=== PATIENT | female | born 1940 | race Caucasian/White ===

== ENCOUNTER 2018-01-30 09:37 | Inpatient (IN) ==
[2018-01-30] MEDS ORDERED: LORazepam 2 MG/1 ML VIAL ONE (09:46)
[2018-01-30] MEDS ORDERED: ATROPINE 1 MG/10 ML SYRINGE ONE (10:13)
[2018-01-30] MEDS ORDERED: PROPOFOL 1,000 MG/100 ML BOTTLE IV ONE (10:18)
[2018-01-30] MEDS ORDERED: LORazepam 2 MG/1 ML VIAL IV STA ×2 (10:18→10:28)
[2018-01-30] MEDS ORDERED: SODIUM CHLORIDE 0.9% 1,000 ML IV STA (10:18)
[2018-01-30] MEDS: PROPOFOL 1,000 MG/100 ML BOTTLE IV SCH ×3 (10:24→23:09)
[2018-01-30] MEDS ORDERED: DOPamine 800 MG/250 ML PREMIX IV ONE (10:24)
[2018-01-30 10:27] LABS: Basophils % 0.1 % (0.0-0.8); Eosinophils % 0.1 % (0.00-10.9); Hematocrit 35.2 VOL% (35.7-47.0); Hemoglobin 11.4 GM/DL (12.0-16.0); Immature Granulocytes % 0.9 %; Immature Granulocytes Absolute 0.13 #; Lymphocytes # 3.8 10*3/uL (1.4-4.0); Lymphocytes % 27.2 % (21.3-54.2); Mean Corpuscular HGB Conc 32.4 GM/DL (32-36); Mean Corpuscular Hemoglobin 29 PG (27-34); Mean Corpuscular Volume 88.9 FL (87-102); Mean Platelet Volume 11.8 FL (9.6-12.0); Monocytes # 0.9 10*3/uL (0.11-0.8); Monocytes % 6.5 % (1.7-12.7); Neutrophils % 65.2 % (38.7-73.9); Platelet Count 388 T/CUMM (130-400); Red Blood Count 3.96 MC/CUMM (3.8-5.5); Red Cell Distribution Width 13.3 % (9.3-17.3); White Blood Count 13.8 T/CUMM (4-12)
[2018-01-30] MEDS: DOPamine 800 MG/250 ML PREMIX IV PRN (10:27)
[2018-01-30 10:38] LABS: Barbiturates Screen,Urine Negative (Negative); Benzodiazepines Screen,Urine Negative (Negative); Cannabinoid Screen,Urine Negative (Negative); Opiate Screen,Urine Negative (Negative); Phencyclidine Screen,Urine Negative (Negative)
[2018-01-30 10:46] LABS: Albumin 3.3 G/DL (3.4-5.0); Bilirubin,Total 0.7 MG/DL (0.2-1.0); Calcium 8.5 MG/DL (8.5-10.1); Osmolality,Calculated 289.8 MOS/KG (273-304); Potassium 4.4 MMOL/L (3.5-5.1); Thyroid Stimulating Hormone 10.2 uIU/ml (0.358-3.74); Total Protein 7.4 G/DL (6.4-8.3)
[2018-01-30 10:49] LABS: Troponin I Only 5.9 NG/ML (0.00-0.045)
[2018-01-30 11:15] LABS: Amorphous Crystals,Urine Occasional /HPF (Few); Apearance,Urine CLOUDY (Clear); Bacteria,Urine Few /HPF (Few); Bilirubin,Urine Negative (Negative); Blood, Urine Small mg/dL (Negative); Glucose,Urine (UA) Negative (Negative); Hyaline Casts,Urine 16 /LPF (0-3); Ketones,Urine Negative (Negative); Nitrite,Urine Negative (Negative); Protein,Urine 100 MG/DL; RBC,Urine 4 /HPF (0-4); Squamous Epithelial Cell,Urine Occasional /HPF (0-10); Urine Color Amber (Yellow); Urine Specific Gravity 1.014 (1.001-1.035); Urine Urobilinogen < 2.0 EU/DL (0.2-1.0); WBC,Urine 16 /HPF (0-6)
[2018-01-30] MEDS ORDERED: ALBUTEROL 2.5 MG/3 ML NEB RESP TX PRN (11:47)
[2018-01-30] MEDS ORDERED: ONDANSETRON 4 MG/2 ML VIAL IV PRN (11:47)
[2018-01-30] MEDS ORDERED: GLUCAGON 1 MG VIAL IM PRN (11:59)
[2018-01-30] MEDS ORDERED: DEXTROSE 50% 25 GM/50 ML VIAL IV PRN (11:59)
[2018-01-30] MEDS: SODIUM CHLORIDE 0.9% 1,000 ML IV SCH ×2 (12:29→23:09)
[2018-01-30] MEDS: PANTOPRAZOLE 40 MG VIAL IV SCH (12:32)
[2018-01-30] MEDS: ALBUTEROL/IPRATROPIUM 3 ML NEB RESP TX SCH ×3 (15:22→19:33)
[2018-01-30 15:28] LABS: ABG Base Excess -9.5 MMOL/L (-2.5-2.5); ABG HCO3 16.9 MMOL/L (20-26); ABG Oxygen Saturation 97.2 % (95-100); ABG PCO2 33.5 MM HG (35-48); ABG PH 7.294 (7.35-7.45); ABG TCO2 14.7 MMOL/L (23-27); Allen Test Positive; Pt O2 Delivery Device Ventilator
[2018-01-30] MEDS: MEROPENEM 1,000 MG in SYRINGE 1 EACH IV SCH (15:59)
[2018-01-30] MEDS: ENOXAPARIN 30 MG/0.3 ML SYRINGE SUBCUT SCH (16:00)
[2018-01-30] MEDS: ASPIRIN CHEW 81 MG TABLET PO SCH (16:00)
[2018-01-30] MEDS ORDERED: INSULIN LISPRO 100 UNIT/ML SUBCUT SCH (16:30)
[2018-01-30 17:32] LABS: ABG Base Excess -9.7 MMOL/L (-2.5-2.5); ABG HCO3 16.7 MMOL/L (20-26); ABG Oxygen Saturation 97.3 % (95-100); ABG PCO2 34.4 MM HG (35-48); ABG PH 7.282 (7.35-7.45); ABG TCO2 14.7 MMOL/L (23-27); Allen Test Positive; Pt O2 Delivery Device Ventilator
[2018-01-30] MEDS: INSULIN LISPRO 100 UNIT/ML SUBCUT SCH (19:04)
[2018-01-30] MEDS: methylPREDNISolone SOD SUC 40 MG/1 ML VIAL IV SCH (20:08)
[2018-01-30] MEDS: CLINDAMYCIN INJ 300 MG in PREMIX 1 EACH IV SCH (21:08)
[2018-01-31] MEDS: DOPamine 800 MG/250 ML PREMIX IV PRN ×3 (00:08→21:14)
[2018-01-31] MEDS: INSULIN LISPRO 100 UNIT/ML SUBCUT SCH ×4 (00:15→18:18)
[2018-01-31] MEDS: ALBUTEROL/IPRATROPIUM 3 ML NEB RESP TX SCH ×4 (01:02→19:21)
[2018-01-31] MEDS: CLINDAMYCIN INJ 300 MG in PREMIX 1 EACH IV SCH ×4 (01:08→20:05)
[2018-01-31] MEDS: MEROPENEM 1,000 MG in SYRINGE 1 EACH IV SCH ×2 (01:11→13:40)
[2018-01-31 04:39] LABS: ABG Base Excess -3.9 MMOL/L (-2.5-2.5); ABG HCO3 21.2 MMOL/L (20-26); ABG Oxygen Saturation 99.6 % (95-100); ABG PCO2 26.4 MM HG (35-48); ABG PH 7.456 (7.35-7.45); ABG TCO2 16.4 MMOL/L (23-27); Allen Test Positive; Pt O2 Delivery Device Ventilator
[2018-01-31] MEDS: PROPOFOL 1,000 MG/100 ML BOTTLE IV SCH ×5 (05:20→23:12)
[2018-01-31 05:41] LABS: Basophils % 0.1 % (0.0-0.8); Hematocrit 33.1 VOL% (35.7-47.0); Hemoglobin 11.8 GM/DL (12.0-16.0); Immature Granulocytes % 0.5 %; Immature Granulocytes Absolute 0.08 #; Lymphocytes # 0.9 10*3/uL (1.4-4.0); Lymphocytes % 6.1 % (21.3-54.2); Mean Corpuscular HGB Conc 35.6 GM/DL (32-36); Mean Corpuscular Hemoglobin 29 PG (27-34); Mean Corpuscular Volume 82.5 FL (87-102); Monocytes # 0.6 10*3/uL (0.11-0.8); Monocytes % 3.9 % (1.7-12.7); Neutrophils # 13.1 10*3/uL (1.4-7.4); Neutrophils % 89.4 % (38.7-73.9); Platelet Count 433 T/CUMM (130-400); Red Blood Count 4.01 MC/CUMM (3.8-5.5); Red Cell Distribution Width 13.2 % (9.3-17.3); White Blood Count 14.6 T/CUMM (4-12)
[2018-01-31 05:52] LABS: INR 2.7
[2018-01-31 05:58] LABS: PT Patient Result 27.9 SECS
[2018-01-31 06:01] LABS: Calcium 8.6 MG/DL (8.5-10.1); Osmolality,Calculated 293.1 MOS/KG (273-304); Potassium 3.5 MMOL/L (3.5-5.1)
[2018-01-31 06:10] LABS: Albumin 3.2 G/DL (3.4-5.0); Bilirubin,Total 0.8 MG/DL (0.2-1.0); Calcium 7.8 MG/DL (8.5-10.1); Potassium 3.5 MMOL/L (3.5-5.1); Total Protein 6.8 G/DL (6.4-8.3)
[2018-01-31 06:11] LABS: Albumin 3.2 G/DL (3.4-5.0); Bilirubin,Direct 0.24 MG/DL (0.0-0.20); Bilirubin,Indirect 0.4 MG/DL (0.0-1.0); Bilirubin,Total 0.6 MG/DL (0.2-1.0); CKMB % 2.4 %; Calcium 8.2 MG/DL (8.5-10.1); Osmolality,Calculated 294.1 MOS/KG (273-304); Potassium 3.5 MMOL/L (3.5-5.1); Total Protein 6.9 G/DL (6.4-8.3); Troponin I Only 3.77 NG/ML (0.00-0.045)
[2018-01-31 06:17] LABS: Troponin I Only 3.85 NG/ML (0.00-0.045)
[2018-01-31] MEDS: LEVOTHYROXINE 100 MCG TABLET PO SCH (06:19)
[2018-01-31] MEDS: methylPREDNISolone SOD SUC 40 MG/1 ML VIAL IV SCH ×2 (06:32→20:05)
[2018-01-31] MEDS: SODIUM CHLORIDE 0.9% 1,000 ML IV SCH ×2 (09:18→20:05)
[2018-01-31] MEDS: ASPIRIN CHEW 81 MG TABLET PO SCH (09:18)
[2018-01-31] MEDS ORDERED: CHLORHEXIDINE 4% SOLN 118 ML BOTTLE TOP ONE (09:51)
[2018-01-31] MEDS: PANTOPRAZOLE 40 MG VIAL IV SCH (13:39)
[2018-01-31 14:13] LABS: Hepatitis A Ab IgM Quant 0.22 Index; Hepatitis A Ab IgM Result Negative (Negative); Hepatitis B Core IgM Result Negative (Negative); Hepatitis B Surface Ag Quant < 0.10 Index; Hepatitis B Surface Ag Result Negative (Negative); Hepatitis C Virus Ab Quant 0.16 Index; Hepatitis C Virus Ab Result Negative (Negative)
[2018-01-31] MEDS: ENOXAPARIN 30 MG/0.3 ML SYRINGE SUBCUT SCH (15:40)
[2018-01-31] MEDS: INSULIN GLARGINE 100 UNIT/ML SUBCUT SCH (21:12)
[2018-02-01] MEDS: ALBUTEROL/IPRATROPIUM 3 ML NEB RESP TX SCH ×4 (00:34→20:17)
[2018-02-01] MEDS: MEROPENEM 1,000 MG in SYRINGE 1 EACH IV SCH ×2 (01:03→15:04)
[2018-02-01] MEDS: CLINDAMYCIN INJ 300 MG in PREMIX 1 EACH IV SCH ×4 (01:04→20:02)
[2018-02-01] MEDS: PROPOFOL 1,000 MG/100 ML BOTTLE IV SCH ×4 (03:30→20:09)
[2018-02-01] MEDS: SODIUM CHLORIDE 0.9% 1,000 ML IV SCH ×2 (05:23→15:12)
[2018-02-01] MEDS: LEVOTHYROXINE 100 MCG TABLET PO SCH (06:07)
[2018-02-01] MEDS: INSULIN LISPRO 100 UNIT/ML SUBCUT SCH ×4 (06:07→18:34)
[2018-02-01] MEDS: methylPREDNISolone SOD SUC 40 MG/1 ML VIAL IV SCH ×2 (06:32→20:01)
[2018-02-01 07:32] LABS: Calcium 8.2 MG/DL (8.5-10.1); Osmolality,Calculated 288.5 MOS/KG (273-304); Potassium 3.6 MMOL/L (3.5-5.1)
[2018-02-01] MEDS: ASPIRIN CHEW 81 MG TABLET PO SCH (11:00)
[2018-02-01] MEDS: BACITRACIN OINT 0.9 GM PACK TOP SCH (11:06)
[2018-02-01 11:42] LABS: ABG Base Excess -0.6 MMOL/L (-2.5-2.5); ABG HCO3 23.9 MMOL/L (20-26); ABG Oxygen Saturation 93.1 % (95-100); ABG PCO2 33.8 MM HG (35-48); ABG PO2 68.1 MM HG (80-95); ABG TCO2 20.5 MMOL/L (23-27)
[2018-02-01] MEDS: PANTOPRAZOLE 40 MG VIAL IV SCH (12:10)
[2018-02-01] MEDS: ENOXAPARIN 30 MG/0.3 ML SYRINGE SUBCUT SCH (15:11)
[2018-02-01] MEDS: DOPamine 800 MG/250 ML PREMIX IV PRN (15:23)
[2018-02-01] MEDS: INSULIN GLARGINE 100 UNIT/ML SUBCUT SCH (20:02)
[2018-02-02] MEDS: INSULIN LISPRO 100 UNIT/ML SUBCUT SCH ×4 (00:18→18:14)
[2018-02-02] MEDS: SODIUM CHLORIDE 0.9% 1,000 ML IV SCH ×3 (01:29→22:29)
[2018-02-02] MEDS: CLINDAMYCIN INJ 300 MG in PREMIX 1 EACH IV SCH ×4 (01:36→19:31)
[2018-02-02] MEDS: PROPOFOL 1,000 MG/100 ML BOTTLE IV SCH ×6 (01:37→22:40)
[2018-02-02] MEDS: MEROPENEM 1,000 MG in SYRINGE 1 EACH IV SCH ×2 (01:38→14:58)
[2018-02-02] MEDS: ALBUTEROL/IPRATROPIUM 3 ML NEB RESP TX SCH ×4 (01:40→19:20)
[2018-02-02] MEDS: SKIN HEALING OINT (AQUAPHOR) 50 GM TUBE TOP PRN (04:07)
[2018-02-02 04:47] LABS: ABG Base Excess -0.4 MMOL/L (-2.5-2.5); ABG HCO3 24.1 MMOL/L (20-26); ABG Oxygen Saturation 99.2 % (95-100); ABG PCO2 28.4 MM HG (35-48); ABG PH 7.496 (7.35-7.45); ABG TCO2 19.5 MMOL/L (23-27); Allen Test Positive; Pt O2 Delivery Device Ventilator
[2018-02-02 05:58] LABS: Hematocrit 30.6 VOL% (35.7-47.0); Hemoglobin 10.5 GM/DL (12.0-16.0); Immature Granulocytes % 0.6 %; Immature Granulocytes Absolute 0.07 #; Lymphocytes # 1.6 10*3/uL (1.4-4.0); Lymphocytes % 14.2 % (21.3-54.2); Mean Corpuscular HGB Conc 34.3 GM/DL (32-36); Mean Corpuscular Hemoglobin 30 PG (27-34); Mean Corpuscular Volume 86.2 FL (87-102); Mean Platelet Volume 10.4 FL (9.6-12.0); Monocytes # 0.9 10*3/uL (0.11-0.8); Monocytes % 8.2 % (1.7-12.7); Neutrophils # 8.4 10*3/uL (1.4-7.4); Platelet Count 326 T/CUMM (130-400); Red Blood Count 3.55 MC/CUMM (3.8-5.5); Red Cell Distribution Width 13.4 % (9.3-17.3); White Blood Count 10.9 T/CUMM (4-12)
[2018-02-02] MEDS: LEVOTHYROXINE 100 MCG TABLET PO SCH (06:05)
[2018-02-02 06:25] LABS: Calcium 8.3 MG/DL (8.5-10.1); Potassium 3.8 MMOL/L (3.5-5.1)
[2018-02-02] MEDS: methylPREDNISolone SOD SUC 40 MG/1 ML VIAL IV SCH ×2 (06:30→19:31)
[2018-02-02] MEDS: BACITRACIN OINT 0.9 GM PACK TOP SCH (09:10)
[2018-02-02] MEDS: ASPIRIN CHEW 81 MG TABLET PO SCH (09:38)
[2018-02-02 10:28] LABS: ABG Base Excess -2.7 MMOL/L (-2.5-2.5); ABG HCO3 21.9 MMOL/L (20-26); ABG Oxygen Saturation 80.2 % (95-100); ABG PCO2 30.8 MM HG (35-48); ABG PH 7.434 (7.35-7.45); ABG PO2 46.4 MM HG (80-95); ABG TCO2 18.3 MMOL/L (23-27)
[2018-02-02] MEDS: amLODIPine 5 MG TABLET PO SCH (11:12)
[2018-02-02] MEDS: PANTOPRAZOLE 40 MG VIAL IV SCH (12:00)
[2018-02-02] MEDS: ENOXAPARIN 30 MG/0.3 ML SYRINGE SUBCUT SCH (15:03)
[2018-02-02] MEDS: INSULIN GLARGINE 100 UNIT/ML SUBCUT SCH (20:03)
[2018-02-03] MEDS: INSULIN LISPRO 100 UNIT/ML SUBCUT SCH ×4 (00:03→18:23)
[2018-02-03] MEDS: ALBUTEROL/IPRATROPIUM 3 ML NEB RESP TX SCH ×4 (00:17→20:11)
[2018-02-03] MEDS: CLINDAMYCIN INJ 300 MG in PREMIX 1 EACH IV SCH ×4 (01:34→18:31)
[2018-02-03] MEDS: MEROPENEM 1,000 MG in SYRINGE 1 EACH IV SCH ×2 (01:35→14:19)
[2018-02-03] MEDS: PROPOFOL 1,000 MG/100 ML BOTTLE IV SCH ×7 (01:46→22:14)
[2018-02-03] MEDS: SKIN HEALING OINT (AQUAPHOR) 50 GM TUBE TOP PRN (03:26)
[2018-02-03 04:04] LABS: ABG Base Excess -1.1 MMOL/L (-2.5-2.5); ABG Oxygen Saturation 97.6 % (95-100); ABG PCO2 31.6 MM HG (35-48); ABG PH 7.461 (7.35-7.45); ABG PO2 115.4 MM HG (80-95); Allen Test Positive; Pt O2 Delivery Device Ventilator
[2018-02-03 04:41] LABS: Basophils % 0.1 % (0.0-0.8); Hematocrit 29.8 VOL% (35.7-47.0); Hemoglobin 10.4 GM/DL (12.0-16.0); Immature Granulocytes % 1.8 %; Immature Granulocytes Absolute 0.17 #; Lymphocytes # 1.3 10*3/uL (1.4-4.0); Lymphocytes % 13.7 % (21.3-54.2); Mean Corpuscular HGB Conc 34.9 GM/DL (32-36); Mean Corpuscular Hemoglobin 30 PG (27-34); Mean Corpuscular Volume 85.6 FL (87-102); Mean Platelet Volume 9.5 FL (9.6-12.0); Monocytes # 0.7 10*3/uL (0.11-0.8); Monocytes % 7.1 % (1.7-12.7); Neutrophils # 7.3 10*3/uL (1.4-7.4); Neutrophils % 77.3 % (38.7-73.9); Platelet Count 332 T/CUMM (130-400); Red Blood Count 3.48 MC/CUMM (3.8-5.5); Red Cell Distribution Width 13.8 % (9.3-17.3); White Blood Count 9.5 T/CUMM (4-12)
[2018-02-03 05:09] LABS: Calcium 8.3 MG/DL (8.5-10.1); Potassium 3.4 MMOL/L (3.5-5.1)
[2018-02-03 05:13] LABS: Prealbumin 19.8 MG/DL (20-40)
[2018-02-03] MEDS: LEVOTHYROXINE 100 MCG TABLET PO SCH (06:00)
[2018-02-03] MEDS: methylPREDNISolone SOD SUC 40 MG/1 ML VIAL IV SCH ×2 (06:34→18:30)
[2018-02-03 07:23] LABS: ABG Base Excess -0.5 MMOL/L (-2.5-2.5); ABG HCO3 23.7 MMOL/L (20-26); ABG PCO2 32.7 MM HG (35-48); ABG PH 7.452 (7.35-7.45); ABG PO2 44.4 MM HG (80-95); ABG TCO2 20.3 MMOL/L (23-27)
[2018-02-03] MEDS: SODIUM CHLORIDE 0.9% 1,000 ML IV SCH ×3 (09:15→19:37)
[2018-02-03] MEDS: ASPIRIN CHEW 81 MG TABLET PO SCH (09:30)
[2018-02-03] MEDS: amLODIPine 5 MG TABLET PO SCH (09:30)
[2018-02-03] MEDS ORDERED: MAGNESIUM SULF RIDER 2 GM in PREMIX 1 EACH IV ONE (10:00)
[2018-02-03] MEDS: PANTOPRAZOLE 40 MG VIAL IV SCH (13:24)
[2018-02-03] MEDS: ENOXAPARIN 30 MG/0.3 ML SYRINGE SUBCUT SCH (14:50)
[2018-02-03] MEDS: BACITRACIN OINT 0.9 GM PACK TOP SCH (19:32)
[2018-02-03] MEDS: CARVEDILOL 3.125 MG TABLET PO SCH (19:37)
[2018-02-03] MEDS: POTASSIUM CHLORIDE RIDER 10 MEQ in PREMIX 1 EACH IV PRN ×3 (20:39→22:42)
[2018-02-03] MEDS: INSULIN GLARGINE 100 UNIT/ML SUBCUT SCH (20:43)
[2018-02-04] MEDS: INSULIN LISPRO 100 UNIT/ML SUBCUT SCH ×4 (00:34→19:29)
[2018-02-04] MEDS: COLLAGENASE OINT 30 GM TUBE TOP SCH ×2 (00:35→09:47)
[2018-02-04] MEDS: CARVEDILOL 3.125 MG TABLET PO SCH ×3 (01:15→15:11)
[2018-02-04] MEDS: CLINDAMYCIN INJ 300 MG in PREMIX 1 EACH IV SCH ×4 (01:15→21:02)
[2018-02-04] MEDS: MEROPENEM 1,000 MG in SYRINGE 1 EACH IV SCH ×2 (01:15→15:11)
[2018-02-04] MEDS: ALBUTEROL/IPRATROPIUM 3 ML NEB RESP TX SCH ×4 (01:23→19:14)
[2018-02-04] MEDS: PROPOFOL 1,000 MG/100 ML BOTTLE IV SCH ×4 (01:37→16:59)
[2018-02-04 03:06] LABS: Basophils % 0.1 % (0.0-0.8); Hematocrit 30.1 VOL% (35.7-47.0); Hemoglobin 9.9 GM/DL (12.0-16.0); Immature Granulocytes % 1.5 %; Immature Granulocytes Absolute 0.12 #; Lymphocytes % 12.5 % (21.3-54.2); Mean Corpuscular HGB Conc 32.9 GM/DL (32-36); Mean Corpuscular Hemoglobin 29 PG (27-34); Mean Corpuscular Volume 87.8 FL (87-102); Mean Platelet Volume 9.9 FL (9.6-12.0); Monocytes # 0.4 10*3/uL (0.11-0.8); Monocytes % 4.8 % (1.7-12.7); Neutrophils # 6.3 10*3/uL (1.4-7.4); Neutrophils % 81.1 % (38.7-73.9); Platelet Count 317 T/CUMM (130-400); Red Blood Count 3.43 MC/CUMM (3.8-5.5); Red Cell Distribution Width 13.8 % (9.3-17.3); White Blood Count 7.8 T/CUMM (4-12)
[2018-02-04 03:55] LABS: ABG Base Excess 0.8 MMOL/L (-2.5-2.5); ABG HCO3 22.3 MMOL/L (20-26); ABG Oxygen Saturation 98.7 % (95-100); ABG PCO2 26.3 MM HG (35-48); ABG PH 7.547 (7.35-7.45); ABG PO2 202.6 MM HG (80-95); ABG TCO2 23.1 MMOL/L (23-27)
[2018-02-04] MEDS: SKIN HEALING OINT (AQUAPHOR) 50 GM TUBE TOP PRN (04:21)
[2018-02-04 06:09] LABS: Albumin 2.4 G/DL (3.4-5.0); Bilirubin,Total 0.8 MG/DL (0.2-1.0); Calcium 8.2 MG/DL (8.5-10.1); Osmolality,Calculated 291.1 MOS/KG (273-304); Total Protein 5.5 G/DL (6.4-8.3)
[2018-02-04] MEDS: methylPREDNISolone SOD SUC 40 MG/1 ML VIAL IV SCH ×2 (06:30→21:02)
[2018-02-04] MEDS: LEVOTHYROXINE 100 MCG TABLET PO SCH (06:30)
[2018-02-04] MEDS: amLODIPine 5 MG TABLET PO SCH (09:43)
[2018-02-04] MEDS: ASPIRIN CHEW 81 MG TABLET PO SCH (09:46)
[2018-02-04] MEDS: FUROSEMIDE 20 MG/2 ML VIAL IV SCH (09:48)
[2018-02-04 11:49] LABS: INR 1.1; PT Patient Result 11.2 SECS
[2018-02-04] MEDS: ENOXAPARIN 30 MG/0.3 ML SYRINGE SUBCUT SCH (15:11)
[2018-02-04] MEDS: PANTOPRAZOLE 40 MG VIAL IV SCH (15:12)
[2018-02-04] MEDS: CARVEDILOL 6.25 MG TABLET PO SCH (19:30)
[2018-02-04] MEDS: INSULIN GLARGINE 100 UNIT/ML SUBCUT SCH (21:03)
[2018-02-05] MEDS: INSULIN LISPRO 100 UNIT/ML SUBCUT SCH ×4 (00:52→18:19)
[2018-02-05] MEDS: CARVEDILOL 6.25 MG TABLET PO SCH ×3 (00:52→12:25)
[2018-02-05] MEDS: ALBUTEROL/IPRATROPIUM 3 ML NEB RESP TX SCH ×4 (01:27→19:15)
[2018-02-05] MEDS: PROPOFOL 1,000 MG/100 ML BOTTLE IV SCH ×3 (01:38→20:45)
[2018-02-05] MEDS: MEROPENEM 1,000 MG in SYRINGE 1 EACH IV SCH ×2 (02:32→17:00)
[2018-02-05] MEDS: CLINDAMYCIN INJ 300 MG in PREMIX 1 EACH IV SCH ×4 (02:32→21:29)
[2018-02-05 04:10] LABS: ABG Base Excess 1.7 MMOL/L (-2.5-2.5); ABG HCO3 25.9 MMOL/L (20-26); ABG Oxygen Saturation 98.6 % (95-100); ABG PCO2 29.7 MM HG (35-48); ABG PH 7.513 (7.35-7.45); Allen Test Positive; Pt O2 Delivery Device Ventilator
[2018-02-05 06:03] LABS: Basophils % 0.2 % (0.0-0.8); Eosinophils % 0.1 % (0.00-10.9); Hematocrit 34.5 VOL% (35.7-47.0); Hemoglobin 11.5 GM/DL (12.0-16.0); Immature Granulocytes % 1.5 %; Immature Granulocytes Absolute 0.22 #; Lymphocytes # 1.7 10*3/uL (1.4-4.0); Lymphocytes % 11.2 % (21.3-54.2); Mean Corpuscular HGB Conc 33.3 GM/DL (32-36); Mean Corpuscular Hemoglobin 29 PG (27-34); Mean Platelet Volume 9.7 FL (9.6-12.0); Monocytes # 0.8 10*3/uL (0.11-0.8); NRBC # 0.02 10*3/uL; Neutrophils # 12.3 10*3/uL (1.4-7.4); Platelet Count 394 T/CUMM (130-400); Red Blood Count 4.01 MC/CUMM (3.8-5.5); Red Cell Distribution Width 13.8 % (9.3-17.3)
[2018-02-05 06:29] LABS: Albumin 2.8 G/DL (3.4-5.0); Bilirubin,Total 0.9 MG/DL (0.2-1.0); Calcium 8.7 MG/DL (8.5-10.1); Osmolality,Calculated 290.3 MOS/KG (273-304); Potassium 3.7 MMOL/L (3.5-5.1); Total Protein 6.4 G/DL (6.4-8.3)
[2018-02-05] MEDS: LEVOTHYROXINE 100 MCG TABLET PO SCH (06:43)
[2018-02-05] MEDS: POTASSIUM CHLORIDE RIDER 10 MEQ in PREMIX 1 EACH IV PRN ×2 (06:56→09:00)
[2018-02-05] MEDS: methylPREDNISolone SOD SUC 40 MG/1 ML VIAL IV SCH ×2 (08:29→21:29)
[2018-02-05] MEDS: ASPIRIN CHEW 81 MG TABLET PO SCH (08:31)
[2018-02-05] MEDS: FUROSEMIDE 20 MG/2 ML VIAL IV SCH (08:31)
[2018-02-05] MEDS: amLODIPine 5 MG TABLET PO SCH ×2 (08:31→21:30)
[2018-02-05] MEDS: FUROSEMIDE 40 MG/4 ML VIAL IV SCH ×2 (10:01→17:05)
[2018-02-05] MEDS: PANTOPRAZOLE 40 MG VIAL IV SCH (12:25)
[2018-02-05] MEDS: SODIUM CHLORIDE 0.9% 1,000 ML IV SCH (12:38)
[2018-02-05] MEDS: COLLAGENASE OINT 30 GM TUBE TOP SCH (21:29)
[2018-02-05] MEDS: INSULIN GLARGINE 100 UNIT/ML SUBCUT SCH (21:30)
[2018-02-05] MEDS: CARVEDILOL 25 MG TABLET PO SCH (21:30)
[2018-02-06] MEDS: ALBUTEROL/IPRATROPIUM 3 ML NEB RESP TX SCH ×4 (00:50→19:33)
[2018-02-06] MEDS: INSULIN LISPRO 100 UNIT/ML SUBCUT SCH ×4 (01:52→18:52)
[2018-02-06] MEDS: CLINDAMYCIN INJ 300 MG in PREMIX 1 EACH IV SCH ×4 (01:54→20:05)
[2018-02-06] MEDS: FUROSEMIDE 40 MG/4 ML VIAL IV SCH ×3 (01:54→17:20)
[2018-02-06] MEDS: MEROPENEM 1,000 MG in SYRINGE 1 EACH IV SCH ×2 (01:54→15:03)
[2018-02-06 04:43] LABS: Basophils % 0.2 % (0.0-0.8); Hematocrit 38.2 VOL% (35.7-47.0); Hemoglobin 13.2 GM/DL (12.0-16.0); Immature Granulocytes % 1.3 %; Immature Granulocytes Absolute 0.18 #; Lymphocytes # 1.8 10*3/uL (1.4-4.0); Lymphocytes % 12.9 % (21.3-54.2); Mean Corpuscular HGB Conc 34.6 GM/DL (32-36); Mean Corpuscular Hemoglobin 29 PG (27-34); Mean Corpuscular Volume 84.5 FL (87-102); Monocytes # 1.1 10*3/uL (0.11-0.8); NRBC # 0.02 10*3/uL; Neutrophils # 10.8 10*3/uL (1.4-7.4); Neutrophils % 77.6 % (38.7-73.9); Platelet Count 442 T/CUMM (130-400); Red Blood Count 4.52 MC/CUMM (3.8-5.5); Red Cell Distribution Width 13.7 % (9.3-17.3)
[2018-02-06 04:55] LABS: Pt O2 Delivery Device Ventilator
[2018-02-06 04:56] LABS: ABG Base Excess 7.2 MMOL/L (-2.5-2.5); ABG Oxygen Saturation 98.7 % (95-100); ABG PCO2 29.7 MM HG (35-48); ABG TCO2 24.6 MMOL/L (23-27)
[2018-02-06 05:00] LABS: ABG PH 7.591 (7.35-7.45)
[2018-02-06 05:17] LABS: Calcium 9.4 MG/DL (8.5-10.1); Osmolality,Calculated 292.5 MOS/KG (273-304); Potassium 3.4 MMOL/L (3.5-5.1)
[2018-02-06] MEDS: PROPOFOL 1,000 MG/100 ML BOTTLE IV SCH ×2 (06:09→15:51)
[2018-02-06] MEDS: LEVOTHYROXINE 100 MCG TABLET PO SCH (06:12)
[2018-02-06] MEDS: methylPREDNISolone SOD SUC 40 MG/1 ML VIAL IV SCH ×2 (08:41→20:05)
[2018-02-06] MEDS: POTASSIUM CHLORIDE RIDER 10 MEQ in PREMIX 1 EACH IV PRN ×3 (08:45→11:42)
[2018-02-06] MEDS ORDERED: LIDOCAINE 2%/EPI 20 ML VIAL ONE (09:44)
[2018-02-06] MEDS: ASPIRIN CHEW 81 MG TABLET PO SCH (09:53)
[2018-02-06] MEDS: amLODIPine 5 MG TABLET PO SCH ×2 (09:54→20:05)
[2018-02-06] MEDS ORDERED: ROCURONIUM 100 MG/10 ML VIAL IV ONE (11:06)
[2018-02-06] MEDS ORDERED: SEVOFLURANE 1 UNIT/15 MINUTE INH ONE (11:06)
[2018-02-06] MEDS: CARVEDILOL 25 MG TABLET PO SCH ×2 (11:35→20:06)
[2018-02-06] MEDS: PANTOPRAZOLE 40 MG VIAL IV SCH (12:18)
[2018-02-06] MEDS: COLLAGENASE OINT 30 GM TUBE TOP SCH (12:24)
[2018-02-06] MEDS: ENOXAPARIN 30 MG/0.3 ML SYRINGE SUBCUT SCH (15:19)
[2018-02-06] MEDS: SODIUM CHLORIDE 0.9% 1,000 ML IV SCH (18:50)
[2018-02-06] MEDS: INSULIN GLARGINE 100 UNIT/ML SUBCUT SCH (20:06)
[2018-02-07] MEDS: ALBUTEROL/IPRATROPIUM 3 ML NEB RESP TX SCH ×4 (00:12→19:51)
[2018-02-07] MEDS: PROPOFOL 1,000 MG/100 ML BOTTLE IV SCH ×2 (00:23→09:16)
[2018-02-07] MEDS: INSULIN LISPRO 100 UNIT/ML SUBCUT SCH ×4 (01:47→18:26)
[2018-02-07] MEDS: FUROSEMIDE 40 MG/4 ML VIAL IV SCH ×3 (01:48→16:51)
[2018-02-07] MEDS: CLINDAMYCIN INJ 300 MG in PREMIX 1 EACH IV SCH ×4 (01:48→21:09)
[2018-02-07] MEDS: MEROPENEM 1,000 MG in SYRINGE 1 EACH IV SCH ×2 (01:51→17:02)
[2018-02-07 04:21] LABS: ABG Base Excess 6.3 MMOL/L (-2.5-2.5); ABG HCO3 30.1 MMOL/L (20-26); ABG Oxygen Saturation 97.3 % (95-100); ABG PCO2 30.5 MM HG (35-48); ABG PO2 93.2 MM HG (80-95); ABG TCO2 24.3 MMOL/L (23-27)
[2018-02-07 04:46] LABS: Basophils % 0.2 % (0.0-0.8); Hematocrit 37.5 VOL% (35.7-47.0); Hemoglobin 12.9 GM/DL (12.0-16.0); Immature Granulocytes % 2.5 %; Immature Granulocytes Absolute 0.42 #; Lymphocytes # 1.9 10*3/uL (1.4-4.0); Lymphocytes % 11.2 % (21.3-54.2); Mean Corpuscular HGB Conc 34.4 GM/DL (32-36); Mean Corpuscular Hemoglobin 29 PG (27-34); Mean Platelet Volume 10.4 FL (9.6-12.0); Monocytes # 1.4 10*3/uL (0.11-0.8); Monocytes % 8.5 % (1.7-12.7); NRBC # 0.04 10*3/uL; Neutrophils # 12.8 10*3/uL (1.4-7.4); Neutrophils % 77.6 % (38.7-73.9); Platelet Count 452 T/CUMM (130-400); Red Blood Count 4.41 MC/CUMM (3.8-5.5); Red Cell Distribution Width 13.6 % (9.3-17.3); White Blood Count 16.6 T/CUMM (4-12)
[2018-02-07 05:27] LABS: Calcium 8.8 MG/DL (8.5-10.1); Osmolality,Calculated 302.1 MOS/KG (273-304); Potassium 3.7 MMOL/L (3.5-5.1)
[2018-02-07] MEDS: LEVOTHYROXINE 100 MCG TABLET PO SCH (06:43)
[2018-02-07] MEDS: methylPREDNISolone SOD SUC 40 MG/1 ML VIAL IV SCH ×2 (09:32→21:09)
[2018-02-07] MEDS: amLODIPine 5 MG TABLET PO SCH ×2 (09:36→21:10)
[2018-02-07] MEDS: CARVEDILOL 25 MG TABLET PO SCH ×2 (09:36→21:10)
[2018-02-07] MEDS: ASPIRIN CHEW 81 MG TABLET PO SCH (09:38)
[2018-02-07] MEDS: COLLAGENASE OINT 30 GM TUBE TOP SCH (10:01)
[2018-02-07] MEDS: PANTOPRAZOLE 40 MG VIAL IV SCH (12:31)
[2018-02-07] MEDS: ENOXAPARIN 40 MG/0.4 ML SYRINGE SUBCUT SCH (16:57)
[2018-02-07] MEDS: SODIUM CHLORIDE 0.9% 1,000 ML IV SCH (17:07)
[2018-02-07] MEDS: INSULIN GLARGINE 100 UNIT/ML SUBCUT SCH (21:10)
[2018-02-08] MEDS: ALBUTEROL/IPRATROPIUM 3 ML NEB RESP TX SCH ×4 (00:50→20:43)
[2018-02-08] MEDS: INSULIN LISPRO 100 UNIT/ML SUBCUT SCH ×4 (01:51→18:27)
[2018-02-08] MEDS: CLINDAMYCIN INJ 300 MG in PREMIX 1 EACH IV SCH ×4 (01:52→21:36)
[2018-02-08] MEDS: MEROPENEM 1,000 MG in SYRINGE 1 EACH IV SCH ×2 (01:52→14:55)
[2018-02-08 03:54] LABS: Basophils % 0.1 % (0.0-0.8); Hematocrit 36.8 VOL% (35.7-47.0); Hemoglobin 11.7 GM/DL (12.0-16.0); Immature Granulocytes % 0.9 %; Immature Granulocytes Absolute 0.13 #; Lymphocytes # 1.7 10*3/uL (1.4-4.0); Lymphocytes % 11.5 % (21.3-54.2); Mean Corpuscular HGB Conc 31.8 GM/DL (32-36); Mean Corpuscular Hemoglobin 28 PG (27-34); Mean Corpuscular Volume 88.9 FL (87-102); Mean Platelet Volume 10.6 FL (9.6-12.0); Monocytes # 0.8 10*3/uL (0.11-0.8); Monocytes % 5.3 % (1.7-12.7); Neutrophils # 12.2 10*3/uL (1.4-7.4); Neutrophils % 82.2 % (38.7-73.9); Platelet Count 373 T/CUMM (130-400); Red Blood Count 4.14 MC/CUMM (3.8-5.5); Red Cell Distribution Width 13.7 % (9.3-17.3); White Blood Count 14.8 T/CUMM (4-12)
[2018-02-08 04:13] LABS: ABG Base Excess 8.3 MMOL/L (-2.5-2.5); ABG Oxygen Saturation 95.1 % (95-100); ABG PCO2 35.2 MM HG (35-48); ABG PH 7.552 (7.35-7.45); ABG PO2 73.2 MM HG (80-95); ABG TCO2 27.1 MMOL/L (23-27)
[2018-02-08 04:17] LABS: Calcium 9.2 MG/DL (8.5-10.1); Osmolality,Calculated 306.1 MOS/KG (273-304); Potassium 3.5 MMOL/L (3.5-5.1)
[2018-02-08] MEDS: PROPOFOL 1,000 MG/100 ML BOTTLE IV SCH ×2 (06:33→12:17)
[2018-02-08] MEDS: LEVOTHYROXINE 100 MCG TABLET PO SCH (06:33)
[2018-02-08] MEDS: amLODIPine 5 MG TABLET PO SCH ×2 (08:41→21:37)
[2018-02-08] MEDS: CARVEDILOL 25 MG TABLET PO SCH ×2 (08:41→21:37)
[2018-02-08] MEDS: ASPIRIN CHEW 81 MG TABLET PO SCH (08:41)
[2018-02-08] MEDS: methylPREDNISolone SOD SUC 40 MG/1 ML VIAL IV SCH ×2 (08:42→21:36)
[2018-02-08] MEDS: FUROSEMIDE 40 MG/4 ML VIAL IV SCH ×2 (08:46→15:06)
[2018-02-08] MEDS: POTASSIUM CHLORIDE RIDER 10 MEQ in PREMIX 1 EACH IV PRN ×3 (08:47→11:56)
[2018-02-08] MEDS: COLLAGENASE OINT 30 GM TUBE TOP SCH (08:58)
[2018-02-08] MEDS: SODIUM CHLORIDE 0.9% 1,000 ML IV SCH (12:17)
[2018-02-08] MEDS: PANTOPRAZOLE 40 MG VIAL IV SCH (12:17)
[2018-02-08] MEDS: ENOXAPARIN 40 MG/0.4 ML SYRINGE SUBCUT SCH (14:56)
[2018-02-08] MEDS ORDERED: BISACODYL 10 MG SUPP RECTAL ONE (21:00)
[2018-02-08] MEDS: METOCLOPRAMIDE 10 MG/2 ML VIAL IV SCH (21:37)
[2018-02-08] MEDS: INSULIN GLARGINE 100 UNIT/ML SUBCUT SCH (21:38)
[2018-02-09] MEDS: ALBUTEROL/IPRATROPIUM 3 ML NEB RESP TX SCH ×4 (00:19→20:23)
[2018-02-09] MEDS: INSULIN LISPRO 100 UNIT/ML SUBCUT SCH ×5 (01:10→23:45)
[2018-02-09] MEDS: CLINDAMYCIN INJ 300 MG in PREMIX 1 EACH IV SCH ×4 (01:10→20:27)
[2018-02-09] MEDS: MEROPENEM 1,000 MG in SYRINGE 1 EACH IV SCH ×2 (01:10→14:48)
[2018-02-09 04:08] LABS: Allen Test Positive; Pt O2 Delivery Device Ventilator
[2018-02-09 04:09] LABS: ABG Base Excess 7.6 MMOL/L (-2.5-2.5); ABG HCO3 31.3 MMOL/L (20-26); ABG Oxygen Saturation 96.9 % (95-100); ABG PCO2 33.8 MM HG (35-48); ABG PH 7.555 (7.35-7.45); ABG PO2 86.6 MM HG (80-95); ABG TCO2 26.1 MMOL/L (23-27)
[2018-02-09] MEDS: METOCLOPRAMIDE 10 MG/2 ML VIAL IV SCH ×4 (04:30→20:27)
[2018-02-09 05:30] LABS: Basophils % 0.1 % (0.0-0.8); Hematocrit 38.2 VOL% (35.7-47.0); Immature Granulocytes % 0.8 %; Immature Granulocytes Absolute 0.15 #; Lymphocytes # 1.9 10*3/uL (1.4-4.0); Lymphocytes % 9.9 % (21.3-54.2); Mean Corpuscular Hemoglobin 30 PG (27-34); Mean Platelet Volume 10.8 FL (9.6-12.0); Monocytes # 1.3 10*3/uL (0.11-0.8); Monocytes % 6.9 % (1.7-12.7); Neutrophils # 15.5 10*3/uL (1.4-7.4); Neutrophils % 82.3 % (38.7-73.9); Platelet Count 440 T/CUMM (130-400); Red Blood Count 4.39 MC/CUMM (3.8-5.5); Red Cell Distribution Width 13.8 % (9.3-17.3); White Blood Count 18.9 T/CUMM (4-12)
[2018-02-09 05:55] LABS: Calcium 9.4 MG/DL (8.5-10.1); Osmolality,Calculated 309.8 MOS/KG (273-304)
[2018-02-09 06:30] LABS: Prealbumin 37.1 MG/DL (20-40)
[2018-02-09] MEDS: methylPREDNISolone SOD SUC 40 MG/1 ML VIAL IV SCH ×3 (09:00→20:27)
[2018-02-09] MEDS: FUROSEMIDE 40 MG/4 ML VIAL IV SCH ×2 (09:01→09:54)
[2018-02-09] MEDS: ASPIRIN CHEW 81 MG TABLET PO SCH (09:04)
[2018-02-09] MEDS: LEVOTHYROXINE 100 MCG TABLET PO SCH (09:04)
[2018-02-09] MEDS: CARVEDILOL 25 MG TABLET PO SCH ×2 (09:04→20:28)
[2018-02-09] MEDS: amLODIPine 5 MG TABLET PO SCH ×2 (09:05→20:28)
[2018-02-09] MEDS: COLLAGENASE OINT 30 GM TUBE TOP SCH (09:06)
[2018-02-09] MEDS: SODIUM CHLORIDE 0.9% 1,000 ML IV SCH (09:14)
[2018-02-09] MEDS: PROPOFOL 1,000 MG/100 ML BOTTLE IV SCH ×2 (09:15→11:07)
[2018-02-09] MEDS: FUROSEMIDE 20 MG/2 ML VIAL IV SCH ×2 (09:55→16:43)
[2018-02-09] MEDS: PANTOPRAZOLE 40 MG VIAL IV SCH (12:24)
[2018-02-09] MEDS: ENOXAPARIN 40 MG/0.4 ML SYRINGE SUBCUT SCH (16:42)
[2018-02-09] MEDS: INSULIN GLARGINE 100 UNIT/ML SUBCUT SCH (20:27)
[2018-02-10] MEDS: ALBUTEROL/IPRATROPIUM 3 ML NEB RESP TX SCH ×4 (00:11→20:42)
[2018-02-10] MEDS: MEROPENEM 1,000 MG in SYRINGE 1 EACH IV SCH ×2 (01:28→13:54)
[2018-02-10] MEDS: CLINDAMYCIN INJ 300 MG in PREMIX 1 EACH IV SCH ×4 (01:28→20:11)
[2018-02-10 02:04] LABS: Basophils % 0.1 % (0.0-0.8); Hematocrit 38.8 VOL% (35.7-47.0); Hemoglobin 12.5 GM/DL (12.0-16.0); Immature Granulocytes % 0.6 %; Immature Granulocytes Absolute 0.08 #; Lymphocytes # 1.2 10*3/uL (1.4-4.0); Lymphocytes % 8.7 % (21.3-54.2); Mean Corpuscular HGB Conc 32.2 GM/DL (32-36); Mean Corpuscular Hemoglobin 29 PG (27-34); Mean Corpuscular Volume 89.4 FL (87-102); Mean Platelet Volume 10.8 FL (9.6-12.0); Monocytes # 0.9 10*3/uL (0.11-0.8); Monocytes % 6.6 % (1.7-12.7); Neutrophils # 11.4 10*3/uL (1.4-7.4); Platelet Count 438 T/CUMM (130-400); Red Blood Count 4.34 MC/CUMM (3.8-5.5); Red Cell Distribution Width 13.7 % (9.3-17.3); White Blood Count 13.6 T/CUMM (4-12)
[2018-02-10 02:21] LABS: Calcium 9.1 MG/DL (8.5-10.1); Osmolality,Calculated 317.7 MOS/KG (273-304); Potassium 3.8 MMOL/L (3.5-5.1)
[2018-02-10] MEDS: METOCLOPRAMIDE 10 MG/2 ML VIAL IV SCH ×4 (02:35→20:12)
[2018-02-10 04:35] LABS: ABG Base Excess 7.8 MMOL/L (-2.5-2.5); ABG HCO3 28.9 MMOL/L (20-26); ABG Oxygen Saturation 98.2 % (95-100); ABG PCO2 29.4 MM HG (35-48); ABG PO2 120.8 MM HG (80-95); ABG TCO2 29.8 MMOL/L (23-27)
[2018-02-10] MEDS: INSULIN LISPRO 100 UNIT/ML SUBCUT SCH ×3 (06:04→19:56)
[2018-02-10] MEDS: LEVOTHYROXINE 100 MCG TABLET PO SCH (06:04)
[2018-02-10 07:07] LABS: ABG Base Excess 6.9 MMOL/L (-2.5-2.5); ABG HCO3 30.8 MMOL/L (20-26); ABG Oxygen Saturation 98.9 % (95-100); ABG PCO2 36.5 MM HG (35-48); ABG PH 7.523 (7.35-7.45); ABG TCO2 26.2 MMOL/L (23-27); Allen Test Positive; Pt O2 Delivery Device Ventilator
[2018-02-10] MEDS: methylPREDNISolone SOD SUC 40 MG/1 ML VIAL IV SCH ×2 (08:39→20:11)
[2018-02-10] MEDS: FUROSEMIDE 20 MG/2 ML VIAL IV SCH (08:39)
[2018-02-10] MEDS: ASPIRIN CHEW 81 MG TABLET PO SCH (08:40)
[2018-02-10] MEDS: amLODIPine 5 MG TABLET PO SCH ×2 (08:40→20:12)
[2018-02-10] MEDS: CARVEDILOL 25 MG TABLET PO SCH ×2 (08:40→20:12)
[2018-02-10] MEDS: COLLAGENASE OINT 30 GM TUBE TOP SCH (08:41)
[2018-02-10] MEDS: SODIUM CHLORIDE 0.9% 1,000 ML IV SCH (12:14)
[2018-02-10] MEDS: PROPOFOL 1,000 MG/100 ML BOTTLE IV SCH (12:15)
[2018-02-10] MEDS: PANTOPRAZOLE 40 MG VIAL IV SCH (12:16)
[2018-02-10] MEDS: ENOXAPARIN 40 MG/0.4 ML SYRINGE SUBCUT SCH (16:20)
[2018-02-10] MEDS: INSULIN GLARGINE 100 UNIT/ML SUBCUT SCH (20:11)
[2018-02-11] MEDS: INSULIN LISPRO 100 UNIT/ML SUBCUT SCH ×4 (00:18→17:54)
[2018-02-11] MEDS: MEROPENEM 1,000 MG in SYRINGE 1 EACH IV SCH (01:15)
[2018-02-11] MEDS: CLINDAMYCIN INJ 300 MG in PREMIX 1 EACH IV SCH ×2 (01:15→07:57)
[2018-02-11] MEDS: ALBUTEROL/IPRATROPIUM 3 ML NEB RESP TX SCH ×4 (01:55→19:44)
[2018-02-11] MEDS ORDERED: MIDAZOLAM 100 MG in SODIUM CHLORIDE 0.9% 80 ML IV PRN (02:47)
[2018-02-11] MEDS: METOCLOPRAMIDE 10 MG/2 ML VIAL IV SCH ×4 (02:55→21:45)
[2018-02-11 04:30] LABS: Basophils % 0.1 % (0.0-0.8); Hematocrit 42.7 VOL% (35.7-47.0); Hemoglobin 13.5 GM/DL (12.0-16.0); Immature Granulocytes % 0.6 %; Immature Granulocytes Absolute 0.08 #; Lymphocytes # 1.3 10*3/uL (1.4-4.0); Lymphocytes % 9.5 % (21.3-54.2); Mean Corpuscular HGB Conc 31.6 GM/DL (32-36); Mean Corpuscular Hemoglobin 29 PG (27-34); Mean Corpuscular Volume 90.1 FL (87-102); Mean Platelet Volume 11.2 FL (9.6-12.0); Monocytes # 1.1 10*3/uL (0.11-0.8); Monocytes % 8.4 % (1.7-12.7); Neutrophils # 11.1 10*3/uL (1.4-7.4); Neutrophils % 81.4 % (38.7-73.9); Platelet Count 482 T/CUMM (130-400); Red Blood Count 4.74 MC/CUMM (3.8-5.5); Red Cell Distribution Width 13.8 % (9.3-17.3); White Blood Count 13.6 T/CUMM (4-12)
[2018-02-11 04:40] LABS: ABG Base Excess 4.8 MMOL/L (-2.5-2.5); ABG HCO3 28.8 MMOL/L (20-26); ABG Oxygen Saturation 98.9 % (95-100); ABG PCO2 36.4 MM HG (35-48); ABG PH 7.495 (7.35-7.45); ABG TCO2 24.2 MMOL/L (23-27)
[2018-02-11 04:58] LABS: Calcium 9.5 MG/DL (8.5-10.1); Osmolality,Calculated 325.1 MOS/KG (273-304)
[2018-02-11] MEDS: LEVOTHYROXINE 100 MCG TABLET PO SCH (06:32)
[2018-02-11] MEDS: methylPREDNISolone SOD SUC 40 MG/1 ML VIAL IV SCH ×2 (07:59→21:44)
[2018-02-11] MEDS: amLODIPine 5 MG TABLET PO SCH ×2 (08:02→21:44)
[2018-02-11] MEDS: CARVEDILOL 25 MG TABLET PO SCH ×2 (08:02→21:44)
[2018-02-11] MEDS: ASPIRIN CHEW 81 MG TABLET PO SCH (08:02)
[2018-02-11] MEDS: MULTIVITAMIN LIQUID (CENTRUM) 60 ML BOTTLE PO SCH (08:02)
[2018-02-11] MEDS: COLLAGENASE OINT 30 GM TUBE TOP SCH (08:03)
[2018-02-11] MEDS ORDERED: FUROSEMIDE 20 MG/2 ML VIAL IV SCH (09:00)
[2018-02-11] MEDS: SODIUM CHLORIDE 0.9% 1,000 ML IV SCH (10:11)
[2018-02-11] MEDS: MEROPENEM 500 MG in SYRINGE 1 EACH IV SCH ×2 (11:11→21:44)
[2018-02-11 11:27] LABS: Pt O2 Delivery Device Ventilator
[2018-02-11 11:28] LABS: ABG Base Excess 5.8 MMOL/L (-2.5-2.5); ABG HCO3 29.6 MMOL/L (20-26); ABG Oxygen Saturation 98.6 % (95-100); ABG PCO2 35.9 MM HG (35-48); ABG PH 7.512 (7.35-7.45); ABG TCO2 24.9 MMOL/L (23-27)
[2018-02-11] MEDS: ENOXAPARIN 40 MG/0.4 ML SYRINGE SUBCUT SCH (14:03)
[2018-02-11] MEDS: PANTOPRAZOLE 40 MG VIAL IV SCH (14:03)
[2018-02-11 15:41] LABS: ABG HCO3 29.9 MMOL/L (20-26); ABG Oxygen Saturation 98.7 % (95-100); ABG PCO2 38.5 MM HG (35-48); ABG PH 7.494 (7.35-7.45); ABG TCO2 25.9 MMOL/L (23-27)
[2018-02-11] MEDS: INSULIN GLARGINE 100 UNIT/ML SUBCUT SCH (21:44)
[2018-02-12] MEDS: ALBUTEROL/IPRATROPIUM 3 ML NEB RESP TX SCH ×4 (01:09→19:40)
[2018-02-12] MEDS: INSULIN LISPRO 100 UNIT/ML SUBCUT SCH ×4 (01:38→17:40)
[2018-02-12] MEDS: METOCLOPRAMIDE 10 MG/2 ML VIAL IV SCH ×4 (02:05→20:15)
[2018-02-12 03:39] LABS: ABG Base Excess 4.5 MMOL/L (-2.5-2.5); ABG HCO3 28.5 MMOL/L (20-26); ABG Oxygen Saturation 99.3 % (95-100); ABG PCO2 37.6 MM HG (35-48); ABG PH 7.481 (7.35-7.45); ABG TCO2 24.6 MMOL/L (23-27)
[2018-02-12 06:23] LABS: Calcium 9.2 MG/DL (8.5-10.1); Osmolality,Calculated 342.4 MOS/KG (273-304); Potassium 3.7 MMOL/L (3.5-5.1)
[2018-02-12] MEDS: LEVOTHYROXINE 100 MCG TABLET PO SCH (06:29)
[2018-02-12 06:30] LABS: Prealbumin 30.6 MG/DL (20-40)
[2018-02-12] MEDS: SODIUM CHLORIDE 0.9% 1,000 ML IV SCH (07:01)
[2018-02-12] MEDS: MEROPENEM 500 MG in SYRINGE 1 EACH IV SCH ×2 (09:37→20:14)
[2018-02-12] MEDS: amLODIPine 5 MG TABLET PO SCH ×2 (09:37→20:14)
[2018-02-12] MEDS: ASPIRIN CHEW 81 MG TABLET PO SCH (09:37)
[2018-02-12] MEDS: CARVEDILOL 25 MG TABLET PO SCH ×2 (09:37→20:14)
[2018-02-12] MEDS: COLLAGENASE OINT 30 GM TUBE TOP SCH (09:38)
[2018-02-12] MEDS: methylPREDNISolone SOD SUC 40 MG/1 ML VIAL IV SCH ×2 (09:38→20:14)
[2018-02-12] MEDS: MULTIVITAMIN LIQUID (CENTRUM) 60 ML BOTTLE PO SCH (09:42)
[2018-02-12] MEDS: DEXTROSE 5% 1,000 ML IV SCH (12:57)
[2018-02-12] MEDS: PANTOPRAZOLE 40 MG VIAL IV SCH (13:03)
[2018-02-12] MEDS: ENOXAPARIN 40 MG/0.4 ML SYRINGE SUBCUT SCH (16:38)
[2018-02-12] MEDS: INSULIN GLARGINE 100 UNIT/ML SUBCUT SCH (20:14)
[2018-02-13] MEDS: ALBUTEROL/IPRATROPIUM 3 ML NEB RESP TX SCH ×4 (00:57→19:51)
[2018-02-13] MEDS: INSULIN LISPRO 100 UNIT/ML SUBCUT SCH ×5 (01:31→23:48)
[2018-02-13] MEDS: METOCLOPRAMIDE 10 MG/2 ML VIAL IV SCH ×4 (02:47→20:27)
[2018-02-13 03:34] LABS: ABG HCO3 27.1 MMOL/L (20-26); ABG Oxygen Saturation 98.7 % (95-100); ABG PCO2 38.1 MM HG (35-48); ABG PH 7.456 (7.35-7.45); ABG TCO2 23.4 MMOL/L (23-27); Allen Test Positive; Pt O2 Delivery Device Ventilator
[2018-02-13 06:20] LABS: Basophils % 0.1 % (0.0-0.8); Hematocrit 39.3 VOL% (35.7-47.0); Hemoglobin 12.4 GM/DL (12.0-16.0); Immature Granulocytes % 0.7 %; Immature Granulocytes Absolute 0.11 #; Lymphocytes # 1.2 10*3/uL (1.4-4.0); Lymphocytes % 7.7 % (21.3-54.2); Mean Corpuscular HGB Conc 31.6 GM/DL (32-36); Mean Corpuscular Hemoglobin 29 PG (27-34); Mean Corpuscular Volume 92.9 FL (87-102); Mean Platelet Volume 11.6 FL (9.6-12.0); Monocytes # 0.7 10*3/uL (0.11-0.8); Monocytes % 4.4 % (1.7-12.7); Neutrophils # 13.3 10*3/uL (1.4-7.4); Neutrophils % 87.1 % (38.7-73.9); Platelet Count 304 T/CUMM (130-400); Red Blood Count 4.23 MC/CUMM (3.8-5.5); Red Cell Distribution Width 13.5 % (9.3-17.3); White Blood Count 15.2 T/CUMM (4-12)
[2018-02-13 06:52] LABS: Calcium 8.9 MG/DL (8.5-10.1); Osmolality,Calculated 336.7 MOS/KG (273-304); Potassium 3.5 MMOL/L (3.5-5.1)
[2018-02-13] MEDS: LEVOTHYROXINE 100 MCG TABLET PO SCH (08:31)
[2018-02-13] MEDS: methylPREDNISolone SOD SUC 40 MG/1 ML VIAL IV SCH ×2 (08:36→20:26)
[2018-02-13] MEDS: DEXTROSE 5% 1,000 ML IV SCH (09:57)
[2018-02-13] MEDS: CARVEDILOL 25 MG TABLET PO SCH ×2 (10:01→20:26)
[2018-02-13] MEDS: ASPIRIN CHEW 81 MG TABLET PO SCH (10:01)
[2018-02-13] MEDS: amLODIPine 5 MG TABLET PO SCH ×2 (10:02→20:26)
[2018-02-13] MEDS: MULTIVITAMIN LIQUID (CENTRUM) 60 ML BOTTLE PO SCH (10:03)
[2018-02-13] MEDS: COLLAGENASE OINT 30 GM TUBE TOP SCH (10:27)
[2018-02-13] MEDS: MEROPENEM 500 MG in SYRINGE 1 EACH IV SCH ×2 (10:41→20:25)
[2018-02-13 11:13] LABS: Potassium 3.4 MMOL/L (3.5-5.1)
[2018-02-13] MEDS: PANTOPRAZOLE 40 MG VIAL IV SCH (12:36)
[2018-02-13] MEDS: ENOXAPARIN 40 MG/0.4 ML SYRINGE SUBCUT SCH (16:25)
[2018-02-13 17:44] LABS: Apearance,Urine CLOUDY (Clear); Bacteria,Urine Occasional /HPF (Few); Bilirubin,Urine Negative (Negative); Blood, Urine Small mg/dL (Negative); Calcium Oxalate Crystals,Urine Occasional /HPF (Few); Glucose,Urine (UA) 150 mg/dL (Negative); Hyaline Casts,Urine 2 /LPF (0-3); Ketones,Urine Negative (Negative); Mucus,Urine Occasional /LPF (Occasional); Nitrite,Urine Negative (Negative); Protein,Urine 30 MG/DL; RBC,Urine 5 /HPF (0-4); Uric Acid Crystals,Urine Few /HPF (<1); Urine Color Yellow (Yellow); Urine Specific Gravity 1.017 (1.001-1.035); Urine Urobilinogen < 2.0 EU/DL (0.2-1.0); WBC,Urine 29 /HPF (0-6)
[2018-02-13] MEDS: POTASSIUM CHLORIDE 20 MEQ/15 ML UDCUP PER TUBE SCH ×2 (18:26→23:48)
[2018-02-13] MEDS: ATORVASTATIN 10 MG TABLET PO SCH (20:26)
[2018-02-13] MEDS: INSULIN GLARGINE 100 UNIT/ML SUBCUT SCH (20:27)
[2018-02-14] MEDS: ALBUTEROL/IPRATROPIUM 3 ML NEB RESP TX SCH ×4 (01:03→15:00)
[2018-02-14] MEDS: METOCLOPRAMIDE 10 MG/2 ML VIAL IV SCH (03:10)
[2018-02-14 04:24] LABS: ABG Base Excess 2.4 MMOL/L (-2.5-2.5); ABG HCO3 26.6 MMOL/L (20-26); ABG PCO2 35.9 MM HG (35-48); ABG PH 7.467 (7.35-7.45); Allen Test Positive; Pt O2 Delivery Device Ventilator
[2018-02-14 05:32] LABS: Basophils % 0.1 % (0.0-0.8); Hematocrit 34.5 VOL% (35.7-47.0); Hemoglobin 11.4 GM/DL (12.0-16.0); Immature Granulocytes % 0.6 %; Immature Granulocytes Absolute 0.09 #; Lymphocytes # 1.1 10*3/uL (1.4-4.0); Lymphocytes % 7.1 % (21.3-54.2); Mean Corpuscular Hemoglobin 29 PG (27-34); Mean Corpuscular Volume 88.2 FL (87-102); Mean Platelet Volume 11.4 FL (9.6-12.0); Monocytes # 0.7 10*3/uL (0.11-0.8); Monocytes % 4.7 % (1.7-12.7); Neutrophils % 87.5 % (38.7-73.9); Platelet Count 278 T/CUMM (130-400); Red Blood Count 3.91 MC/CUMM (3.8-5.5); White Blood Count 14.8 T/CUMM (4-12)
[2018-02-14 05:49] LABS: Calcium 8.7 MG/DL (8.5-10.1); Osmolality,Calculated 311.1 MOS/KG (273-304); Potassium 4.2 MMOL/L (3.5-5.1)
[2018-02-14] MEDS: DEXTROSE 5% 1,000 ML IV SCH (05:56)
[2018-02-14] MEDS: INSULIN LISPRO 100 UNIT/ML SUBCUT SCH ×3 (06:11→18:27)
[2018-02-14] MEDS: LEVOTHYROXINE 100 MCG TABLET PO SCH (06:12)
[2018-02-14] MEDS: methylPREDNISolone SOD SUC 40 MG/1 ML VIAL IV SCH (06:52)
[2018-02-14] MEDS ORDERED: methylPREDNISolone SOD SUC 40 MG/1 ML VIAL IV SCH (09:00)
[2018-02-14] MEDS: ASPIRIN CHEW 81 MG TABLET PO SCH (09:21)
[2018-02-14] MEDS: amLODIPine 5 MG TABLET PO SCH (09:22)
[2018-02-14] MEDS: CARVEDILOL 25 MG TABLET PO SCH ×2 (09:23→20:06)
[2018-02-14] MEDS: METOCLOPRAMIDE 10 MG/10 ML UDCUP PER TUBE SCH ×2 (09:24→15:46)
[2018-02-14] MEDS: MULTIVITAMIN LIQUID (CENTRUM) 60 ML BOTTLE PER TUBE SCH (09:27)
[2018-02-14] MEDS: RANITIDINE 150 MG/10 ML 30 ML BOTTLE PER TUBE SCH ×2 (09:30→20:06)
[2018-02-14] MEDS: glipiZIDE 10 MG TABLET PER TUBE SCH (09:45)
[2018-02-14] MEDS: ENOXAPARIN 40 MG/0.4 ML SYRINGE SUBCUT SCH (15:45)
[2018-02-14] MEDS: SKIN HEALING OINT (AQUAPHOR) 50 GM TUBE TOP PRN (15:58)
[2018-02-14] MEDS: COLLAGENASE OINT 30 GM TUBE TOP SCH (15:59)
[2018-02-14] MEDS: ATORVASTATIN 10 MG TABLET PO SCH (20:06)
[2018-02-14] MEDS: AMITRIPTYLINE 25 MG TABLET PER TUBE SCH (20:06)
[2018-02-14] MEDS: INSULIN GLARGINE 100 UNIT/ML SUBCUT SCH (20:06)
[2018-02-15] MEDS: ALBUTEROL/IPRATROPIUM 3 ML NEB RESP TX SCH ×3 (00:24→14:38)
[2018-02-15] MEDS: METOCLOPRAMIDE 10 MG/10 ML UDCUP PER TUBE SCH ×3 (00:57→16:32)
[2018-02-15] MEDS: INSULIN LISPRO 100 UNIT/ML SUBCUT SCH ×4 (00:57→19:15)
[2018-02-15 04:30] LABS: ABG Base Excess 2.5 MMOL/L (-2.5-2.5); ABG HCO3 26.6 MMOL/L (20-26); ABG PCO2 27.9 MM HG (35-48); ABG PH 7.545 (7.35-7.45); ABG TCO2 21.5 MMOL/L (23-27); Allen Test Positive; Pt O2 Delivery Device Ventilator
[2018-02-15] MEDS: LEVOTHYROXINE 100 MCG TABLET PER TUBE SCH (06:12)
[2018-02-15 06:32] LABS: Calcium 8.4 MG/DL (8.5-10.1); Calcium 8.5 MG/DL (8.5-10.1); Osmolality,Calculated 301.4 MOS/KG (273-304); Osmolality,Calculated 304.1 MOS/KG (273-304); Potassium 3.4 MMOL/L (3.5-5.1)
[2018-02-15] MEDS ORDERED: methylPREDNISolone SOD SUC 40 MG/1 ML VIAL IV SCH (09:00)
[2018-02-15] MEDS: MULTIVITAMIN LIQUID (CENTRUM) 60 ML BOTTLE PER TUBE SCH (09:25)
[2018-02-15] MEDS: RANITIDINE 150 MG/10 ML 30 ML BOTTLE PER TUBE SCH ×2 (09:25→20:26)
[2018-02-15] MEDS: POTASSIUM CHLORIDE 20 MEQ/15 ML UDCUP PER TUBE SCH ×3 (09:26→16:33)
[2018-02-15] MEDS: FUROSEMIDE 40 MG/5 ML UDCUP PO SCH (09:26)
[2018-02-15] MEDS: ASPIRIN CHEW 81 MG TABLET PO SCH (09:28)
[2018-02-15] MEDS: CARVEDILOL 25 MG TABLET PO SCH ×2 (09:28→20:03)
[2018-02-15] MEDS: glipiZIDE 10 MG TABLET PER TUBE SCH ×3 (09:28→16:32)
[2018-02-15] MEDS: COLLAGENASE OINT 30 GM TUBE TOP SCH (09:29)
[2018-02-15] MEDS: predniSONE 20 MG TABLET PER TUBE SCH (09:32)
[2018-02-15] MEDS: amLODIPine 5 MG TABLET PO SCH (10:12)
[2018-02-15] MEDS: ENOXAPARIN 40 MG/0.4 ML SYRINGE SUBCUT SCH (16:33)
[2018-02-15] MEDS: ATORVASTATIN 10 MG TABLET PO SCH (20:05)
[2018-02-15] MEDS: AMITRIPTYLINE 25 MG TABLET PER TUBE SCH (20:06)
[2018-02-15] MEDS: INSULIN GLARGINE 100 UNIT/ML SUBCUT SCH (20:06)
[2018-02-16] MEDS: METOCLOPRAMIDE 10 MG/10 ML UDCUP PER TUBE SCH ×3 (00:17→17:26)
[2018-02-16] MEDS: INSULIN LISPRO 100 UNIT/ML SUBCUT SCH ×4 (00:17→18:44)
[2018-02-16] MEDS: ALBUTEROL/IPRATROPIUM 3 ML NEB RESP TX SCH ×4 (01:27→23:29)
[2018-02-16 04:49] LABS: Pt O2 Delivery Device Ventilator
[2018-02-16 04:50] LABS: ABG Base Excess 5.1 MMOL/L (-2.5-2.5); ABG Oxygen Saturation 99.3 % (95-100); ABG PCO2 26.4 MM HG (35-48); ABG TCO2 22.9 MMOL/L (23-27)
[2018-02-16 04:51] LABS: Calcium 8.7 MG/DL (8.5-10.1); Osmolality,Calculated 301.8 MOS/KG (273-304); Potassium 3.3 MMOL/L (3.5-5.1)
[2018-02-16 04:52] LABS: ABG PH 7.599 (7.35-7.45)
[2018-02-16 04:54] LABS: Prealbumin 30.1 MG/DL (20-40)
[2018-02-16] MEDS: POTASSIUM CHLORIDE RIDER 10 MEQ in PREMIX 1 EACH IV PRN ×4 (06:06→20:17)
[2018-02-16] MEDS: LEVOTHYROXINE 100 MCG TABLET PER TUBE SCH (06:06)
[2018-02-16] MEDS: glipiZIDE 10 MG TABLET PER TUBE SCH ×2 (09:04→18:44)
[2018-02-16] MEDS: RANITIDINE 150 MG/10 ML 30 ML BOTTLE PER TUBE SCH ×2 (09:05→20:17)
[2018-02-16] MEDS: FUROSEMIDE 40 MG/5 ML UDCUP PO SCH (09:06)
[2018-02-16] MEDS: MULTIVITAMIN LIQUID (CENTRUM) 60 ML BOTTLE PER TUBE SCH (09:07)
[2018-02-16] MEDS: predniSONE 20 MG TABLET PER TUBE SCH (09:08)
[2018-02-16] MEDS: CARVEDILOL 25 MG TABLET PO SCH ×2 (09:08→20:17)
[2018-02-16] MEDS: amLODIPine 5 MG TABLET PO SCH (09:08)
[2018-02-16] MEDS: ASPIRIN CHEW 81 MG TABLET PO SCH (09:11)
[2018-02-16] MEDS: ENOXAPARIN 40 MG/0.4 ML SYRINGE SUBCUT SCH (17:25)
[2018-02-16] MEDS: COLLAGENASE OINT 30 GM TUBE TOP SCH (17:26)
[2018-02-16] MEDS: ATORVASTATIN 10 MG TABLET PO SCH (20:16)
[2018-02-16] MEDS: AMITRIPTYLINE 25 MG TABLET PER TUBE SCH (20:16)
[2018-02-16] MEDS: INSULIN GLARGINE 100 UNIT/ML SUBCUT SCH (20:17)
[2018-02-17] MEDS: INSULIN LISPRO 100 UNIT/ML SUBCUT SCH ×3 (00:17→13:01)
[2018-02-17] MEDS: METOCLOPRAMIDE 10 MG/10 ML UDCUP PER TUBE SCH ×3 (00:18→15:34)
[2018-02-17 00:58] LABS: Basophils % 0.1 % (0.0-0.8); Eosinophils # 0.1 10*3/uL (0.0-0.87); Eosinophils % 0.6 % (0.00-10.9); Hematocrit 31.7 VOL% (35.7-47.0); Hemoglobin 10.9 GM/DL (12.0-16.0); Immature Granulocytes % 0.7 %; Lymphocytes # 2.1 10*3/uL (1.4-4.0); Lymphocytes % 14.3 % (21.3-54.2); Mean Corpuscular HGB Conc 34.4 GM/DL (32-36); Mean Corpuscular Hemoglobin 30 PG (27-34); Mean Corpuscular Volume 86.6 FL (87-102); Mean Platelet Volume 12.4 FL (9.6-12.0); Monocytes # 0.8 10*3/uL (0.11-0.8); Monocytes % 5.2 % (1.7-12.7); Neutrophils # 11.3 10*3/uL (1.4-7.4); Neutrophils % 79.1 % (38.7-73.9); Platelet Count 231 T/CUMM (130-400); Red Blood Count 3.66 MC/CUMM (3.8-5.5); Red Cell Distribution Width 13.2 % (9.3-17.3); White Blood Count 14.3 T/CUMM (4-12)
[2018-02-17 01:23] LABS: Calcium 8.5 MG/DL (8.5-10.1); Potassium 3.4 MMOL/L (3.5-5.1)
[2018-02-17 01:24] LABS: Calcium 8.4 MG/DL (8.5-10.1); Potassium 3.4 MMOL/L (3.5-5.1)
[2018-02-17] MEDS: POTASSIUM CHLORIDE RIDER 10 MEQ in PREMIX 1 EACH IV PRN ×3 (02:38→07:28)
[2018-02-17 03:37] LABS: ABG Base Excess 5.4 MMOL/L (-2.5-2.5); ABG HCO3 29.3 MMOL/L (20-26); ABG Oxygen Saturation 99.3 % (95-100); ABG PCO2 31.9 MM HG (35-48); ABG PH 7.546 (7.35-7.45); ABG TCO2 24.7 MMOL/L (23-27)
[2018-02-17] MEDS: LEVOTHYROXINE 100 MCG TABLET PER TUBE SCH (06:36)
[2018-02-17] MEDS: ALBUTEROL/IPRATROPIUM 3 ML NEB RESP TX SCH ×2 (06:55→15:47)
[2018-02-17] MEDS: glipiZIDE 10 MG TABLET PER TUBE SCH ×2 (09:16→15:33)
[2018-02-17] MEDS: ASPIRIN CHEW 81 MG TABLET PO SCH (09:18)
[2018-02-17] MEDS: CARVEDILOL 25 MG TABLET PO SCH (09:18)
[2018-02-17] MEDS: predniSONE 20 MG TABLET PER TUBE SCH (09:18)
[2018-02-17] MEDS: FUROSEMIDE 40 MG/5 ML UDCUP PO SCH (09:19)
[2018-02-17] MEDS: MULTIVITAMIN LIQUID (CENTRUM) 60 ML BOTTLE PER TUBE SCH (09:19)
[2018-02-17] MEDS: amLODIPine 5 MG TABLET PO SCH (09:19)
[2018-02-17] MEDS: RANITIDINE 150 MG/10 ML 30 ML BOTTLE PER TUBE SCH (09:20)
[2018-02-17] MEDS: COLLAGENASE OINT 30 GM TUBE TOP SCH (13:01)
[2018-02-17] MEDS: ENOXAPARIN 40 MG/0.4 ML SYRINGE SUBCUT SCH (15:33)
[2018-02-17 17:57] VITALS: BP 123/71
== END 2018-02-17 16:43 | DRG 4 ==
LOC: N.ED 09:37 → N.EDINP 10:54 → SUATTDRO 10:54 → N.CC 13:55
PROVIDERS: ADMIT Internal Medicine; ATTEND Family Medicine

== ENCOUNTER 2018-04-20 04:57 | Inpatient (IN) ==
[2018-04-20 05:27] LABS: Basophils # 0.1 10*3/uL (0.0-0.2); Basophils % 0.3 % (0.0-0.8); Eosinophils # 0.6 10*3/uL (0.0-0.87); Hematocrit 30.7 VOL% (35.7-47.0); Hemoglobin 9.9 GM/DL (12.0-16.0); Immature Granulocytes % 0.7 %; Immature Granulocytes Absolute 0.14 #; Lymphocytes # 2.2 10*3/uL (1.4-4.0); Lymphocytes % 10.9 % (21.3-54.2); Mean Corpuscular HGB Conc 32.2 GM/DL (32-36); Mean Corpuscular Hemoglobin 30 PG (27-34); Mean Corpuscular Volume 92.2 FL (87-102); Mean Platelet Volume 10.2 FL (9.6-12.0); Monocytes # 1.1 10*3/uL (0.11-0.8); Monocytes % 5.4 % (1.7-12.7); Neutrophils # 15.7 10*3/uL (1.4-7.4); Neutrophils % 79.7 % (38.7-73.9); Platelet Count 443 T/CUMM (130-400); Red Blood Count 3.33 MC/CUMM (3.8-5.5); White Blood Count 19.7 T/CUMM (4-12)
[2018-04-20 06:13] LABS: ABG HCO3 24.9 MMOL/L (20-26); ABG Oxygen Saturation 92.4 % (95-100); ABG PCO2 36.5 MM HG (35-48); ABG PH 7.451 (7.35-7.45); ABG PO2 72.2 MM HG (80-95); Allen Test Positive; Pt O2 Delivery Device CPAP
[2018-04-20] MEDS ORDERED: FUROSEMIDE 40 MG/4 ML VIAL IV STA (06:15)
[2018-04-20] MEDS ORDERED: GENTAMICIN INJ 120 MG in SODIUM CHLORIDE 0.9% 100 ML IV STA (06:22)
[2018-04-20] MEDS ORDERED: CLINDAMYCIN INJ 600 MG in PREMIX 1 EACH IV STA (06:22)
[2018-04-20] MEDS ORDERED: GENTAMICIN 80 MG/2 ML VIAL ONE ×2 (06:48→06:49)
[2018-04-20] MEDS ORDERED: methylPREDNISolone SOD SUC 125 MG/2 ML VIAL IV STA (07:04)
[2018-04-20 07:06] LABS: Albumin 2.5 G/DL (3.4-5.0); Bilirubin,Total 0.7 MG/DL (0.2-1.0); Calcium 8.7 MG/DL (8.5-10.1); Potassium 4.4 MMOL/L (3.5-5.1); Total Protein 7.2 G/DL (6.4-8.3)
[2018-04-20 07:07] LABS: Amorphous Crystals,Urine Occasional /HPF (Few); Apearance,Urine CLOUDY (Clear); Bacteria,Urine Occasional /HPF (Few); Bilirubin,Urine Negative (Negative); Blood, Urine Negative (Negative); Glucose,Urine (UA) Negative (Negative); Ketones,Urine Negative (Negative); Nitrite,Urine Negative (Negative); Protein,Urine 100 MG/DL; RBC,Urine 22 /HPF (0-4); Squamous Epithelial Cell,Urine Occasional /HPF (0-10); Urine Color Amber (Yellow); Urine Specific Gravity 1.011 (1.001-1.035); Urine Urobilinogen < 2.0 EU/DL (0.2-1.0); WBC,Urine 242 /HPF (0-6)
[2018-04-20] MEDS ORDERED: GLUCAGON 1 MG VIAL IM PRN (09:19)
[2018-04-20] MEDS ORDERED: DEXTROSE 50% 25 GM/50 ML VIAL IV PRN (09:19)
[2018-04-20] MEDS ORDERED: ACETAMINOPHEN 325 MG TABLET PO PRN (09:19)
[2018-04-20] MEDS ORDERED: diphenhydrAMINE CAP 25 MG CAPSULE PO PRN (09:19)
[2018-04-20] MEDS ORDERED: MORPHINE 4 MG/1 ML VIAL IV PRN (09:19)
[2018-04-20] MEDS ORDERED: DOCUSATE SODIUM 100 MG CAPSULE PO PRN (09:19)
[2018-04-20] MEDS ORDERED: ONDANSETRON 4 MG/2 ML VIAL IV PRN (09:19)
[2018-04-20] MEDS ORDERED: SKIN HEALING OINT (AQUAPHOR) 50 GM TUBE TOP PRN (09:29)
[2018-04-20] MEDS: FUROSEMIDE 40 MG/4 ML VIAL IV SCH ×3 (11:40→20:58)
[2018-04-20] MEDS: MELOXICAM 7.5 MG TABLET PO SCH (11:56)
[2018-04-20] MEDS: GABAPENTIN 100 MG CAPSULE PO SCH ×2 (11:56→21:00)
[2018-04-20] MEDS: glipiZIDE 5 MG TABLET PO SCH (11:57)
[2018-04-20] MEDS: amLODIPine 5 MG TABLET PO SCH (11:57)
[2018-04-20] MEDS: ASPIRIN 325 MG TABLET PO SCH (11:57)
[2018-04-20] MEDS: CARVEDILOL 25 MG TABLET PO SCH ×2 (11:57→21:00)
[2018-04-20] MEDS: ENOXAPARIN 40 MG/0.4 ML SYRINGE SUBCUT SCH (11:57)
[2018-04-20] MEDS: MULTIVITAMIN (CENTRUM) TABLET PO SCH (11:57)
[2018-04-20] MEDS: LEVOTHYROXINE 100 MCG TABLET PO SCH (12:05)
[2018-04-20] MEDS: MEROPENEM 1,000 MG in SODIUM CHLORIDE 0.9% 100 ML IV SCH ×2 (12:05→20:58)
[2018-04-20] MEDS: PANTOPRAZOLE 40 MG TABLET PO SCH (12:05)
[2018-04-20] MEDS ORDERED: INSULIN LISPRO 100 UNIT/ML ONE (17:42)
[2018-04-20] MEDS: INSULIN LISPRO 100 UNIT/ML SUBCUT SCH ×2 (17:47→20:59)
[2018-04-20 17:54] LABS: ABG Base Excess 2.6 MMOL/L (-2.5-2.5); ABG HCO3 26.6 MMOL/L (20-26); ABG Oxygen Saturation 91.4 % (95-100); ABG PCO2 33.5 MM HG (35-48); ABG PH 7.492 (7.35-7.45); ABG PO2 61.2 MM HG (80-95); ABG TCO2 23.4 MMOL/L (23-27)
[2018-04-20] MEDS: GENTAMICIN INJ 120 MG in SODIUM CHLORIDE 0.9% 100 ML IV SCH (18:02)
[2018-04-20] MEDS: ATORVASTATIN 10 MG TABLET PO SCH (21:00)
[2018-04-20] MEDS: AMITRIPTYLINE 25 MG TABLET PO SCH (21:00)
[2018-04-20] MEDS ORDERED: INSULIN LISPRO 100 UNIT/ML SUBCUT SCH (21:00)
[2018-04-21 02:53] LABS: Basophils % 0.1 % (0.0-0.8); Hematocrit 27.6 VOL% (35.7-47.0); Hemoglobin 9.1 GM/DL (12.0-16.0); Immature Granulocytes % 0.7 %; Lymphocytes # 1.6 10*3/uL (1.4-4.0); Lymphocytes % 11.9 % (21.3-54.2); Mean Corpuscular Hemoglobin 29 PG (27-34); Monocytes # 0.6 10*3/uL (0.11-0.8); Monocytes % 4.4 % (1.7-12.7); Neutrophils # 11.2 10*3/uL (1.4-7.4); Neutrophils % 82.9 % (38.7-73.9); Platelet Count 465 T/CUMM (130-400); Red Cell Distribution Width 15.5 % (9.3-17.3); White Blood Count 13.5 T/CUMM (4-12)
[2018-04-21 03:21] LABS: Calcium 8.7 MG/DL (8.5-10.1); Osmolality,Calculated 288.7 MOS/KG (273-304); Potassium 3.5 MMOL/L (3.5-5.1)
[2018-04-21] MEDS: FUROSEMIDE 40 MG/4 ML VIAL IV SCH ×3 (03:38→16:16)
[2018-04-21] MEDS: MEROPENEM 1,000 MG in SODIUM CHLORIDE 0.9% 100 ML IV SCH ×3 (03:38→20:36)
[2018-04-21] MEDS: LEVOTHYROXINE 100 MCG TABLET PO SCH (06:09)
[2018-04-21] MEDS: GENTAMICIN INJ 120 MG in SODIUM CHLORIDE 0.9% 100 ML IV SCH ×2 (06:09→18:48)
[2018-04-21] MEDS: MELOXICAM 7.5 MG TABLET PO SCH (08:49)
[2018-04-21] MEDS: GABAPENTIN 100 MG CAPSULE PO SCH ×2 (08:49→20:35)
[2018-04-21] MEDS: glipiZIDE 5 MG TABLET PO SCH (08:49)
[2018-04-21] MEDS: PANTOPRAZOLE 40 MG TABLET PO SCH (08:49)
[2018-04-21] MEDS: ASPIRIN 325 MG TABLET PO SCH (08:49)
[2018-04-21] MEDS: CARVEDILOL 25 MG TABLET PO SCH ×2 (08:50→20:35)
[2018-04-21] MEDS: MULTIVITAMIN (CENTRUM) TABLET PO SCH (08:50)
[2018-04-21] MEDS: amLODIPine 5 MG TABLET PO SCH (08:50)
[2018-04-21] MEDS: ENOXAPARIN 40 MG/0.4 ML SYRINGE SUBCUT SCH (08:50)
[2018-04-21] MEDS: INSULIN LISPRO 100 UNIT/ML SUBCUT SCH ×4 (08:51→20:44)
[2018-04-21] MEDS: ATORVASTATIN 10 MG TABLET PO SCH (20:35)
[2018-04-21] MEDS: AMITRIPTYLINE 25 MG TABLET PO SCH (20:36)
[2018-04-22 03:31] LABS: Basophils % 0.1 % (0.0-0.8); Eosinophils % 0.1 % (0.00-10.9); Hematocrit 27.7 VOL% (35.7-47.0); Hemoglobin 8.9 GM/DL (12.0-16.0); Immature Granulocytes % 0.9 %; Immature Granulocytes Absolute 0.14 #; Lymphocytes # 3.8 10*3/uL (1.4-4.0); Mean Corpuscular HGB Conc 32.1 GM/DL (32-36); Mean Corpuscular Hemoglobin 29 PG (27-34); Mean Corpuscular Volume 90.2 FL (87-102); Mean Platelet Volume 9.6 FL (9.6-12.0); Monocytes # 1.1 10*3/uL (0.11-0.8); Monocytes % 6.8 % (1.7-12.7); Neutrophils # 10.9 10*3/uL (1.4-7.4); Neutrophils % 68.1 % (38.7-73.9); Platelet Count 513 T/CUMM (130-400); Red Blood Count 3.07 MC/CUMM (3.8-5.5); Red Cell Distribution Width 15.8 % (9.3-17.3)
[2018-04-22 04:02] LABS: Calcium 8.4 MG/DL (8.5-10.1); Osmolality,Calculated 289.1 MOS/KG (273-304); Potassium 3.3 MMOL/L (3.5-5.1)
[2018-04-22] MEDS: MEROPENEM 1,000 MG in SODIUM CHLORIDE 0.9% 100 ML IV SCH ×2 (04:22→13:15)
[2018-04-22] MEDS: LEVOTHYROXINE 100 MCG TABLET PO SCH (06:26)
[2018-04-22] MEDS: POTASSIUM CHLORIDE 20 MEQ TABLET PO PRN (06:26)
[2018-04-22] MEDS ORDERED: POTASSIUM CHLORIDE 20 MEQ TABLET PO ONE (08:40)
[2018-04-22] MEDS: MELOXICAM 7.5 MG TABLET PO SCH (08:52)
[2018-04-22] MEDS: MULTIVITAMIN (CENTRUM) TABLET PO SCH (08:52)
[2018-04-22] MEDS: GABAPENTIN 100 MG CAPSULE PO SCH ×2 (08:52→21:02)
[2018-04-22] MEDS: ASPIRIN 325 MG TABLET PO SCH (08:52)
[2018-04-22] MEDS: FUROSEMIDE 40 MG/4 ML VIAL IV SCH (08:53)
[2018-04-22] MEDS: PANTOPRAZOLE 40 MG TABLET PO SCH (08:53)
[2018-04-22] MEDS: glipiZIDE 5 MG TABLET PO SCH (08:53)
[2018-04-22] MEDS: INSULIN LISPRO 100 UNIT/ML SUBCUT SCH ×4 (08:53→21:02)
[2018-04-22] MEDS: amLODIPine 5 MG TABLET PO SCH (08:53)
[2018-04-22] MEDS: CARVEDILOL 25 MG TABLET PO SCH ×2 (08:53→21:02)
[2018-04-22] MEDS: ENOXAPARIN 40 MG/0.4 ML SYRINGE SUBCUT SCH (08:54)
[2018-04-22] MEDS: GENTAMICIN INJ 120 MG in PREMIX 1 EACH IV SCH (14:18)
[2018-04-22] MEDS: ATORVASTATIN 10 MG TABLET PO SCH (21:02)
[2018-04-22] MEDS: AMITRIPTYLINE 25 MG TABLET PO SCH (21:02)
[2018-04-23 05:00] LABS: Basophils # 0.1 10*3/uL (0.0-0.2); Basophils % 0.6 % (0.0-0.8); Eosinophils # 0.7 10*3/uL (0.0-0.87); Eosinophils % 5.7 % (0.00-10.9); Hematocrit 32.1 VOL% (35.7-47.0); Hemoglobin 10.4 GM/DL (12.0-16.0); Immature Granulocytes % 1.6 %; Lymphocytes # 4.1 10*3/uL (1.4-4.0); Lymphocytes % 33.1 % (21.3-54.2); Mean Corpuscular HGB Conc 32.4 GM/DL (32-36); Mean Corpuscular Hemoglobin 29 PG (27-34); Mean Corpuscular Volume 90.4 FL (87-102); Mean Platelet Volume 9.6 FL (9.6-12.0); Monocytes # 1.1 10*3/uL (0.11-0.8); Monocytes % 8.6 % (1.7-12.7); NRBC # 0.05 10*3/uL; Neutrophils # 6.2 10*3/uL (1.4-7.4); Neutrophils % 50.4 % (38.7-73.9); Platelet Count 623 T/CUMM (130-400); Red Blood Count 3.55 MC/CUMM (3.8-5.5); Red Cell Distribution Width 15.9 % (9.3-17.3); White Blood Count 12.3 T/CUMM (4-12)
[2018-04-23 05:31] LABS: Calcium 9.6 MG/DL (8.5-10.1); Osmolality,Calculated 284.3 MOS/KG (273-304); Potassium 3.9 MMOL/L (3.5-5.1)
[2018-04-23] MEDS: GENTAMICIN INJ 120 MG in PREMIX 1 EACH IV SCH (06:20)
[2018-04-23] MEDS: LEVOTHYROXINE 100 MCG TABLET PO SCH (06:20)
[2018-04-23] MEDS: glipiZIDE 5 MG TABLET PO SCH (08:37)
[2018-04-23] MEDS: MULTIVITAMIN (CENTRUM) TABLET PO SCH (08:37)
[2018-04-23] MEDS: ASPIRIN 325 MG TABLET PO SCH (08:37)
[2018-04-23] MEDS: PANTOPRAZOLE 40 MG TABLET PO SCH (08:38)
[2018-04-23] MEDS: CARVEDILOL 25 MG TABLET PO SCH (08:38)
[2018-04-23] MEDS: FUROSEMIDE 40 MG/4 ML VIAL IV SCH (08:38)
[2018-04-23] MEDS: ENOXAPARIN 40 MG/0.4 ML SYRINGE SUBCUT SCH (08:38)
[2018-04-23] MEDS: POTASSIUM CHLORIDE 20 MEQ TABLET PO PRN (08:38)
[2018-04-23] MEDS: amLODIPine 5 MG TABLET PO SCH (08:38)
[2018-04-23] MEDS: MELOXICAM 7.5 MG TABLET PO SCH (08:38)
[2018-04-23] MEDS: GABAPENTIN 100 MG CAPSULE PO SCH (08:38)
[2018-04-23] MEDS: INSULIN LISPRO 100 UNIT/ML SUBCUT SCH ×2 (09:02→13:40)
[2018-04-23 12:26] VITALS: BP 114/58
== END 2018-04-23 13:26 | disposition home health service (06) | DRG 291 ==
LOC: EDUNIT# → N.ED 04:57 → SUATTDRO 09:20 → N.EDINP 09:20 → N.TELES 11:12
PROVIDERS: ADMIT Internal Medicine; ATTEND Internal Medicine